=== PATIENT | male | born 1970 ===

== ENCOUNTER 2016-09-16 15:46 | Emergency (ER) | payer MEDICARE, OTHER ==
[~2016-09-16] VITALS: Ht 188 cm; Wt 59.0 kg
[2016-09-16 15:47] VITALS: BP 114/56
== END 2016-09-16 16:53 | disposition home or self-care (01) ==
LOC: ER 16:02
DX: H10.9 Unspecified conjunctivitis (principal)
CPT/HCPCS: A4606; Z7610

== ENCOUNTER 2016-09-17 10:36 | Emergency (ER) | payer MEDICARE, OTHER ==
[~2016-09-17] VITALS: Ht 185.4 cm; Wt 61.2 kg
[2016-09-17 10:38] VITALS: BP 125/81
[2016-09-17] MEDS ORDERED: FLUORESCEIN SODIUM OPHTH 1 EA STRIP ONE (10:42)
[2016-09-17] MEDS ORDERED: TETRACAINE HCL/PF 0.5% UD 2 ML BOTTLE ONE (10:43)
[2016-09-17] MEDS ORDERED: FLUORESCEIN SODIUM OPHTH 1 EA STRIP OP ONE (11:00)
[2016-09-17] MEDS ORDERED: TETRACAINE HCL 0.5% OPHTALMIC 15 ML BOTTLE OP ONE (11:00)
== END 2016-09-17 11:37 | disposition home or self-care (01) ==
LOC: ER 10:38
DX: H57.11 Ocular pain, right eye (principal); H57.8 Other specified disorders of eye and adnexa
CPT/HCPCS: 99283; A4606; Z7610